=== PATIENT | female | born 1990 ===

== ENCOUNTER 2018-09-14 19:16 | Emergency (ER) | payer SELFPAY ==
[2018-09-14 19:25] VITALS: BP 130/80; PULSE 86; RESP 18; TEMP 97.9; O2SAT 100
--- NOTE | 2018-09-14 19:35 | ED PDOC ---
Arrival/HPI - General Chief Complaint: Lower Extremity Problem/Injury Time Seen by Provider: 09/14/18 19:18 Historian: Patient - History of Present Illness Narrative History of Present Illness (Text): 09/14/18 19:35 28 yo F who injured her L great toe and L 2nd toe today at work, when a pallet fell onto her L foot. Patient reports of a laceration to the L great toe. Denies any numbness, decrease in ROM, other injury or pain. Has no other complaints. Past Medical History - Psychiatric Hx Substance Use: No Family/Social History Family/Social History: No Known Family HX Smoking Status: Never Smoked Hx Alcohol Use: No Hx Substance Use: No Allergies/Home Meds Allergies/Adverse Reactions: Allergies No Known Allergies Allergy (Verified 09/14/18 19:23) Review of Systems - Review of Systems Constitutional: absent: Fatigue, Fevers Musculoskeletal: Arthralgias. absent: Back Pain, Neck Pain, Joint Swelling Skin: absent: Rash, Pruritis, Skin Lesions Neurological: absent: Headache, Dizziness Physical Exam Vital Signs Temp Pulse Resp BP Pulse Ox 09/14/18 19:23 97.9 F 86 18 130/80 100 Temperature: Afebrile Blood Pressure: Normal Pulse: Regular Respiratory Rate: Normal Appearance: Positive for: Well-Appearing, Non-Toxic, Comfortable Pain Distress: Mild Mental Status: Positive for: Alert and Oriented X 3 - Systems Exam Lower Extremity: Present: NORMAL PULSES, Tenderness (L foot : +mild tenderness to the L great toe and L 2nd toe, +skin tear to the nail margin of the L great toe), Neurovascularly Intact, Capillary Refill < 2 s. No: Edema, Swelling, Erythema, Temperature Abnormalties Neurological: Present: GCS=15, CN II-XII Intact, Speech Normal, Motor Func Grossly Intact, Normal Sensory Function Skin: Present: Warm, Dry, Normal Color. No: Rashes Psychiatric: Present: Alert, Oriented x 3, Normal Insight, Normal Concentration Medical Decision Making ED Course and Treatment: 09/14/18 19:32 Plan : - XR L foot - Tdap IM - Naprosyn PO XR L foot : +small chip fracture to the distal aspect of the 1st distal phalanx, no dislocation. XR results d/w the patient. Wound cleaned and dressed. Patient given a cast shoe and crutches. Advised to follow up with referral physician in 1-2 days without fail. Advised to take medication as prescribed. Return to the emergency room at any time for any new or worsening symptoms. Patient states she fully agrees with and understands discharge instructions. States that she agrees with the plan and disposition. Verbalized and repeated discharge instructions and plan. I have given the patient opportunity to ask any additional questions. 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 Disposition/Present on Arrival - Present on Arrival Any Indicators Present on Arrival: No History of DVT/PE: No History of Uncontrolled Diabetes: No Urinary Catheter: No History of Decub. Ulcer: No History Surgical Site Infection Following: None - Disposition Have Diagnosis and Disposition been Completed?: Yes Diagnosis: Fracture of left great toe, Skin tear Disposition: HOME/ ROUTINE Disposition Time: 20:50 Patient Plan: Discharge Condition: STABLE Discharge Instructions (ExitCare): Toe Fracture (DC), Wound Care (DC) Print Language: TANZANIAN Additional Instructions: Thank you for letting us take care of you today. You were treated for L great toe fracture, skin tear. The emergency medical care you received today was directed at your acute symptoms. If you were prescribed any medication, please fill it and take as directed. It may take several days for your symptoms to resolve. Return to the Emergency Department if your symptoms worsen, do not improve, or if you have any other problems. Please contact your doctor in 2 days for re-evaluation and follow up / or call one of the physicians/clinics you have been referred to that are listed on the Patient Visit Information form that is included in your discharge packet. Bring any paperwork you were given at discharge with you along with any medications you are taking to your follow up visit. Our treatment cannot replace ongoing medical care by a primary care provider (PCP) outside of the emergency department. Thank you for allowing the [email or web address] team to be part of your care today. If you had an X-Ray : A Radiologist will review the ED reading if any change in treatment is needed we will contact you. Prescriptions: Cephalexin [Keflex] 500 mg PO Q6 #28 capsule Naproxen 500 mg PO BID PRN #20 tablet PRN Reason: Pain, Moderate (4-7) Referrals: Kalyani Flynn DPM [Staff Provider] - Follow up with primary Forms: [employer] (Spanish), WORK NOTE
[2018-09-14] MEDS ORDERED: TDAP Vaccine 0.5 mL Syr IM ONE (19:37)
[2018-09-14] MEDS ORDERED: Naproxen 550 mg Tab PO STA (19:37)
--- NOTE | 2018-09-15 08:23 | RAD ---
Date of service: 09/14/2018 PROCEDURE: Left Foot Radiographs. HISTORY: trauma to the toes COMPARISON: None. TECHNIQUE: Four views obtained. FINDINGS: BONES: There is a minimally displaced fracture through the distal tuft of the 1st distal phalanx. JOINTS: Normal. SOFT TISSUES: Normal. OTHER FINDINGS: None. IMPRESSION: There is a minimally displaced fracture through the distal tuft of the 1st distal phalanx.
== END 2018-09-14 21:23 | disposition home or self-care (01) ==
LOC: ED 19:16
DX: S92.422A Displaced fracture of distal phalanx of left great toe, initial encounter for closed fracture (principal); S91.112A Laceration without foreign body of left great toe without damage to nail, initial encounter; W20.8XXA Other cause of strike by thrown, projected or falling object, initial encounter; Y99.0 Civilian activity done for income or pay; Z23 Encounter for immunization